=== PATIENT | female | born 1990 | race Caucasian/White ===

== ENCOUNTER 2018-04-13 01:20 | Inpatient (IN) | payer OTHER ==
[2018-04-13] MEDS: ELECTROLYTE-148 SOLN 1,000 ML IV SCH ×2 (01:30→06:30)
[2018-04-13] MEDS ORDERED: TUBERCULIN PPD 5 TU/0.1ML SYRINGE (IN PATIENT USE ONLY) ID ONE (02:30)
[2018-04-13 02:49] LABS: BASO % 0.3 % (0-2.0); EOS % 0.8 % (0-4.5); HEMATOCRIT 36.9 % (32.4-45.2); HEMOGLOBIN 12.8 GM/dL (10.7-15.3); LYMPH % 32.3 % (8-40); MCH 30.5 pg (25.7-33.7); MCHC 34.8 g/dl (32.0-36.0); MEAN CELL VOLUME 87.8 fl (80-96); MEAN PLT VOLUME 8.4 fl (7.5-11.1); MONO % 5.3 % (3.8-10.2); NEUT % 61.3 % (42.8-82.8); PLATELET COUNT 218 K/MM3 (134-434); RDW 13.5 % (11.6-15.6); WHITE BLOOD COUNT 8.7 K/mm3 (4.0-10.0)
[2018-04-13 03:02] LABS: INR 0.97 (0.83-1.09); PROTHROMBIN TIME (PATIENT) 11.4 SEC (9.7-13.0)
[2018-04-13 03:05] LABS: ACTIVATED PTT 28.4 SECONDS (25.2-36.5)
[2018-04-13 03:13] LABS: ANION GAP 10 MMOL/L (8-16); BLOOD UREA NITROGEN 12 mg/dL (7-18); CALCIUM 8.5 mg/dL (8.5-10.1); CHLORIDE 106 mmol/L (98-107); CO2 22 mmol/L (21-32); CREATININE 0.6 mg/dL (0.55-1.3); GLUCOSE,RANDOM 85 mg/dL (74-106); POTASSIUM 3.6 mmol/L (3.5-5.1); SODIUM 138 mmol/L (136-145)
[2018-04-13 03:17] VITALS: BMI 39.6
[2018-04-13] MEDS ORDERED: BUTORPHANOL TARTRATE 1 MG/ML VIAL IVPB ONE (05:44)
[2018-04-13] MEDS ORDERED: PROMETHAZINE HCL 25 MG/1 ML VIAL IVPUSH ONE (05:44)
--- NOTE | 2018-04-13 05:55 | HP ---
Past Medical History - Admission Chief Complaint: Contractions since yesterday History of Present Illness: 28 y/o with SIUP at 40.1 weeks, c/o contractions since 04/11 that strengthened over 04/12. no LOF/VB. +FM. complicated only by unstable lie, baby currently VTX. History Source: Patient, Medical Record Limitations to Obtaining History: No Limitations - Past Medical History Cardiovascular: No: HTN Pulmonary: No: Asthma Gastrointestinal: No: Inflamatory Bowel Disease Hepatobiliary: No: Hepatitis B, Hepatitis C ...: 5 ...Para: 3 ...Term: 3 ...: 0 ...Spon : 1 ...Induced : 0 ...Multiple Gestation: 0 ...LMP: 07/06/17 ... Weeks Gestation by Dates: 40.1 ...EDC by Dates: 04/12/18 ...EDC by Sono: 04/12/18 Infectious Disease: No: AIDS, HIV, MRSA Psych: No: Anxiety, Bipolar, Depression - Past Surgical History Past Surgical History: Yes: None Hx Myomectomy: No Hx Transabdominal Cerclage: No - Smoking History Smoking history: Never smoked Have you smoked in the past 12 months: No - Alcohol/Substance Use Hx Alcohol Use: No - Social History ADL: Independent History of Recent Travel: No Home Medications - Allergies Allergies/Adverse Reactions: Allergies Allergy/AdvReac Type Severity Reaction Status Date / Time No Known Allergies Allergy Verified 04/13/18 01:58 - Home Medications Home Medications: Ambulatory Orders Vitamins (Sjr) - 1 tab PO DAILY 04/13/18 Review of Systems - Review of Systems Constitutional: reports: No Symptoms Eyes: reports: No Symptoms HENT: reports: No Symptoms Neck: reports: No Symptoms Cardiovascular: reports: No Symptoms Respiratory: reports: No Symptoms Gastrointestinal: reports: Abdominal Pain (contractions) Genitourinary: reports: No Symptoms Breasts: reports: No Symptoms Reported Musculoskeletal: reports: No Symptoms Integumentary: reports: No Symptoms Neurological: reports: No Symptoms Endocrine: reports: No Symptoms Hematology/Lymphatic: reports: No Symptoms Psychiatric: reports: No Symptoms Physical Exam - Maternity Vital Signs: Vital Signs Temperature 98.6 F 04/13/18 04:00 Pulse Rate 74 04/13/18 05:00 Respiratory Rate 20 04/13/18 05:00 Blood Pressure 122/72 04/13/18 05:00 O2 Sat by Pulse Oximetry (%) Constitutional: Yes: Well Nourished, Calm, Mild Distress (with contractions) Eyes: Yes: Conjunctiva Clear, EOM Intact HENT: Yes: Atraumatic, Normocephalic Neck: Yes: Trachea Midline Cardiovascular: Yes: Regular Rate and Rhythm Lungs: Clear to auscultation - Abdominal Exam/OB Fundal Height: 40 Number of Fetuses: Single Presentation: Vertex Contractions: Yes Regularity: Regular Intensity: Mod/Strong Heart Rate (range): 140 Category: I Accelerations: Uniform Decelerations: None - Vaginal Exam/OB Dilatation (cm): 7 Effacement (%): 90 Amniotic Membrane Status: Intact Presentation: Vertex/Position Station: -1 - Physical Exam Psychiatric: Yes: Alert, Oriented - Labs Lab Results: CBC, BMP 04/13/18 02:25 04/13/18 02:25 Hemorrhage Risk Assessment - Risk Factors Medium Risk Factors: Yes: None High Risk Factors: Yes: None Risk Score: 1 Risk Level: Medium Risk Problem List - Problems (1) Active labor at term Code(s): [id number] - Assessment/Plan 28 y/o with SIUP at 40.2 weeks admitted in labor FHTS cat 1 to get epidural then AROM and possibly pitocin GBS negative anticipate
[2018-04-13] MEDS ORDERED: FENTANYL/BUPIVACAINE/NS/PF - PCEA - 50 ML DISP.SYRIN EP ONE (06:02)
[2018-04-13] MEDS ORDERED: BUPIVACAINE HCL/PF 0.25% (2.5MG/ML) 10 ML VIAL ONE (06:11)
[2018-04-13] MEDS ORDERED: NALOXONE HCL 0.4 MG/ML VIAL IVPUSH PRN (06:29)
[2018-04-13] MEDS ORDERED: FENTANYL/BUPIVACAINE/NS/PF - PCEA - 50 ML DISP.SYRIN EP SCH (06:30)
--- NOTE | 2018-04-13 06:48 | PN ---
Ante-Partal Exam - Subjective Subjective: Pt comfortable s/p epidural. Vital Signs: Vital Signs Temperature 98.6 F 04/13/18 04:00 Pulse Rate 74 04/13/18 05:00 Respiratory Rate 20 04/13/18 05:00 Blood Pressure 122/72 04/13/18 05:00 O2 Sat by Pulse Oximetry (%) Bleeding: No Headache: No Visual changes: No Right upper quadrant pain: No Pain (scale 1-10): 0 - Contractions Contractions: Yes Regularity: Regular Intensity: Mod/Strong - Exam during Labor Heart Rate: 145 Variability: Moderate Category: I Monitor Decelerations: None Exam: Vaginal Dilatation (cm): 8 Effacement (%): 90 Amniotic Membrane Status: Ruptured (AROM for clear fluid) Amniotic Fluid: Clear Presentation: Vertex Station: -1 - Assessment/Plan Assessment/Plan: 28 y/o with SIUP at 40.1 weeks, labor s/p epidural/AROM GBS negative continue expectant management anticipate
[2018-04-13] MEDS ORDERED: LIDOCAINE HCL 1% PRESERVATIVE FREE - 30ML VIAL ONE (07:39)
[2018-04-13] MEDS ORDERED: OXYTOCIN 20 UNITS in 0.9% NS 20 UNIT/1,000 ML INFUS.BAG IV ONE ×2 (07:39→08:10)
--- NOTE | 2018-04-13 08:04 | PN ---
Ante-Partal Exam - Subjective Vital Signs: Vital Signs Temperature 98.6 F 04/13/18 04:00 Pulse Rate 90 04/13/18 07:40 Respiratory Rate 20 04/13/18 07:40 Blood Pressure 123/74 04/13/18 07:40 O2 Sat by Pulse Oximetry (%) 100 04/13/18 07:40
[2018-04-13] MEDS ORDERED: METHYLERGONOVINE MALEATE 0.2 MG/1 ML AMP IM PRN (08:05)
[2018-04-13] MEDS ORDERED: BENZOCAINE 28 GM HEMORRHOIDAL OINTMENT TP PRN (08:05)
[2018-04-13] MEDS ORDERED: BENZOCAINE 20% 57 GM BOTTLE TP PRN (08:05)
[2018-04-13] MEDS ORDERED: BISACODYL 10 MG SUPP.RECT RC PRN (08:05)
[2018-04-13] MEDS ORDERED: WITCH HAZEL 50% (TUCKS) 40 PAD/JAR PAD TP PRN (08:05)
--- NOTE | 2018-04-13 08:05 | PN ---
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
[2018-04-13] MEDS ORDERED: OXYTOCIN 20 UNITS in 0.9% NS 20 UNIT/1,000 ML INFUS.BAG IV SCH (08:15)
[2018-04-13] MEDS: PRENATAL VITAMINS W/ FOLIC ACID TABLET (FP) PO SCH (10:00)
[2018-04-13] MEDS: FERROUS SO4 325 MG TABLET (FP) PO SCH ×2 (12:00→17:44)
[2018-04-13] MEDS: ACETAMINOPHEN 325 MG TABLET (FP) PO PRN (20:04)
[2018-04-13] MEDS: IBUPROFEN 600 MG TABLET (FP) PO PRN (20:05)
[2018-04-14 08:02] LABS: BASO % 0.3 % (0-2.0); EOS % 1.8 % (0-4.5); HEMATOCRIT 36.5 % (32.4-45.2); HEMOGLOBIN 12.3 GM/dL (10.7-15.3); LYMPH % 33.9 % (8-40); MCH 29.8 pg (25.7-33.7); MCHC 33.6 g/dl (32.0-36.0); MEAN CELL VOLUME 88.7 fl (80-96); MEAN PLT VOLUME 8.1 fl (7.5-11.1); MONO % 4.5 % (3.8-10.2); NEUT % 59.5 % (42.8-82.8); PLATELET COUNT 196 K/MM3 (134-434); RBC 4.12 M/mm3 (3.60-5.2); RDW 14.3 % (11.6-15.6)
[2018-04-14] MEDS: PRENATAL VITAMINS W/ FOLIC ACID TABLET (FP) PO SCH (09:01)
[2018-04-14] MEDS: FERROUS SO4 325 MG TABLET (FP) PO SCH ×3 (09:01→17:21)
[2018-04-14] MEDS: IBUPROFEN 600 MG TABLET (FP) PO PRN (09:05)
[2018-04-14] MEDS: ACETAMINOPHEN 325 MG TABLET (FP) PO PRN (09:06)
[2018-04-14] MEDS ORDERED: DIPHTH,PERTUSS(ACELL),TET 0.5 ML DISP.SYRIN IM ONE (10:00)
--- NOTE | 2018-04-14 11:09 | PN ---
Post Progress Note - Subjective Subjective: Pt seen/evaluated. Doing well. No complaints. Tolerating diet, ambulating, voiding, passing flatus. Type of Delivery: Vital Signs: Vital Signs Temperature 98 F 04/14/18 07:40 Pulse Rate 76 04/14/18 07:40 Respiratory Rate 20 04/14/18 07:40 Blood Pressure 111/76 04/14/18 07:40 O2 Sat by Pulse Oximetry (%) 100 04/13/18 07:55 Breast Exam: Yes: Soft Uterus: Yes: Fundus Firm Abdomen/GI: Yes: Abdomen soft, Tolerating PO Lochia: Yes: Rubra Lochia, amount: Small Extremities: Yes: Calves non-tender, Edema (trace b/l le edema) Perineum: Yes: Intact Activity: Ambulating - Labs Labs: CBC WBC 10.0 K/mm3 (4.0-10.0) 04/14/18 07:00 RBC 4.12 M/mm3 (3.60-5.2) 04/14/18 07:00 Hgb 12.3 GM/dL (10.7-15.3) 04/14/18 07:00 Hct 36.5 % (32.4-45.2) 04/14/18 07:00 MCV 88.7 fl (80-96) 04/14/18 07:00 MCH 29.8 pg (25.7-33.7) 04/14/18 07:00 MCHC 33.6 g/dl (32.0-36.0) 04/14/18 07:00 RDW 14.3 % (11.6-15.6) 04/14/18 07:00 Plt Count 196 K/MM3 (134-434) 04/14/18 07:00 MPV 8.1 fl (7.5-11.1) 04/14/18 07:00 Absolute Neuts (auto) 5.9 K/mm3 (1.5-8.0) 04/14/18 07:00 Neutrophils % 59.5 % (42.8-82.8) 04/14/18 07:00 Lymphocytes % 33.9 % (8-40) 04/14/18 07:00 Monocytes % 4.5 % (3.8-10.2) 04/14/18 07:00 Eosinophils % 1.8 % (0-4.5) D 04/14/18 07:00 Basophils % 0.3 % (0-2.0) 04/14/18 07:00 Nucleated RBC % 0 % (0-0) 04/14/18 07:00 Problem List - Problems (1) Active labor at term Code(s): SXA6461 - Assessment/Plan PPD#1 s/p normal reguar diet ambulation PO pain meds routine care
[2018-04-14] MEDS ORDERED: SENNOSIDES/DOCUSATE COMBO (SENNA PLUS) TABLET (UD) PO PRN (22:00)
--- NOTE | 2018-04-15 06:38 | DS ---
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 SHe had an uncomplicated post recovery and was discharged home on post day 2. Condition: Good - Instructions Diet, Activity, Other Instructions: Physical activity Resume your normal everyday activity as tolerated no heavy lifting or exercise until seen by your surgeon. You may walk unlimited amounts and climb stairs. You may resume driving the car when you feel safe and comfortable behind the wheel. No sexual activity as instructed. You may shower daily, no soaking in tubs/baths/pools until cleared by your doctor. . Diet There are no dietary restrictions. Eat healthy, high-fiber foods. Drink 6 to 8 glasses of liquid each day. This will assist in keeping your bowels regular. Pain management You may take Tylenol or or Ibuprofen (for example, Motrin, Advil etc.) as needed for pain. If anything stronger is sent to your pharmacy please take only for severe pain as directed. Call MD for any of the following: Severe pain not relieved by medication Fever of 101 or higher Excessive bleeding or drainage on dressing Inability to urinate Disposition: HOME - Home Medications Comprehensive Discharge Medication List: Ambulatory Orders Vitamins (Sjr) - 1 tab PO DAILY 04/13/18
[2018-04-15 08:23] VITALS: BP 117/76; PULSE 70; TEMP 98.4
[2018-04-15] MEDS: PRENATAL VITAMINS W/ FOLIC ACID TABLET (FP) PO SCH (09:21)
[2018-04-15] MEDS: FERROUS SO4 325 MG TABLET (FP) PO SCH ×2 (09:21→12:00)
== END 2018-04-15 13:20 | disposition home or self-care (01) | DRG 560 ==
LOC: JDEL 01:20 → JLDR 02:00 → J3W 09:30
PROVIDERS: ADMIT Obstetrics & Gynecology; ATTEND Obstetrics & Gynecology
PROC: 10E0XZZ Delivery of Products of Conception, External Approach (ICD-10-PCS; principal; 2018-04-13)
DX: O32.0XX0 Maternal care for unstable lie, not applicable or unspecified (principal); O48.0 Post-term pregnancy; Z3A.40 40 weeks gestation of pregnancy; Z37.0 Single live birth
CPT/HCPCS: 36415; 59409; 80048; 85025; 85610; 85730; 86593; 86850; 86900; 86901; 87389; 90715

== ENCOUNTER 2018-06-08 16:42 | Emergency (ER) | payer OTHER ==
[2018-06-08 16:56] VITALS: BP 112/67; PULSE 72; TEMP 97.8; BMI 39.2
--- NOTE | 2018-06-08 17:17 | PDOC ---
History of Present Illness - General Chief Complaint: Foreign Body (FB) Stated Complaint: URINARY COMPL/IUD Time Seen by Provider: 06/08/18 17:17 History Source: Patient - History of Present Illness Initial Comments: 06/08/18 18:25 28 year old female c/o left pelvic pain x 3 day worse with urinating. patient [facility] denies vaginal discharge, NVD, fever/ chills. Past History - Past Medical History Allergies/Adverse Reactions: Allergies Allergy/AdvReac Type Severity Reaction Status Date / Time No Known Allergies Allergy Verified 04/13/18 01:58 Home Medications: Ambulatory Orders Vitamins (Sjr) - 1 tab PO DAILY 04/13/18 Ibuprofen [Motrin -] 600 mg PO QID #28 tablet 04/15/18 Asthma: No Cancer: No Cardiac Disorders: No COPD: No Diabetes: No HTN: No Seizures: No Thyroid Disease: No - Immunization History Immunization Up to Date: No - Suicide/Smoking/Psychosocial Hx Smoking History: Never smoked Have you smoked in the past 12 months: No Information on smoking cessation initiated: No Hx Alcohol Use: No Drug/Substance Use Hx: No Substance Use Type: None Hx Substance Use Treatment: No Review of Systems - Review of Systems Able to Perform ROS?: Yes Is the patient limited Maltese proficient: No Constitutional: No: Symptoms Reported, See HPI, Chills, Diaphoresis, Fever, Loss of Appetite, Malaise, Night Sweats, Weakness, Weight Stable, Unintentional Wgt. Loss, Unexplained wgt Loss, Other ABD/GI: Yes: Other (pelvic pain) : Yes: Dysuria *Physical Exam - Vital Signs Last Vital Signs Temp Pulse Resp BP Pulse Ox 97.8 F 72 18 112/67 100 06/08/18 16:52 06/08/18 16:52 06/08/18 16:52 06/08/18 16:52 06/08/18 16:52 - Physical Exam General Appearance: Yes: Appropriately Dressed Female Pelvic Exam: positive: normal external exam, other (IUD string in vaginal vault) Musculoskeletal: positive: Normal Inspection Extremity: positive: Normal Capillary Refill, Normal Inspection, Normal Range of Motion Integumentary: positive: Normal Color, Dry, Warm Neurologic: positive: Fully Oriented, Alert Medical Decision Making - Medical Decision Making 06/08/18 19:[address] marlow recommends CT labs. patient transferred to Main ED> signed out to Terry MORFIN/ Rowan RN *DC/Admit/Observation/Transfer Diagnosis at time of Disposition: Malpositioned IUD Qualifiers: Encounter type: initial encounter Qualified Code(s): T83.32XA - Displacement of intrauterine contraceptive device, initial encounter - Discharge Dispostion Condition at time of disposition: Stable - Referrals - Patient Instructions - Post Discharge Activity
[2018-06-08 18:44] LABS: EPI CELLS 0.7 /HPF (0-5/HPF); PH,URINE 7.5 (5.0-8.0); URINE APPEARANCE CLEAR; URINE BACTERIA 40.5 /hpf (NEGATIVE); URINE BILIRUBIN NEGATIVE (NEGATIVE); URINE CASTS 0 /lpf (0-8); URINE COLOR YELLOW; URINE GLUCOSE (UA) NEGATIVE (NEGATIVE); URINE KETONE NEGATIVE (NEGATIVE); URINE LEUK ESTERASE TRACE (NEGATIVE); URINE NITRITE NEGATIVE (NEGATIVE); URINE PROTEIN NEGATIVE (NEGATIVE); URINE RBC 1 /hpf (0-4); URINE UROBILINOGEN 0.2 mg/dL (0.2-1.0); URINE WBC 1 /hpf (0-5)
--- NOTE | 2018-06-08 19:41 | PDOC ---
*Physical Exam - Vital Signs Last Vital Signs Temp Pulse Resp BP Pulse Ox 97.8 F 72 18 112/67 100 06/08/18 16:52 06/08/18 16:52 06/08/18 16:52 06/08/18 16:52 06/08/18 16:52 - Physical Exam General Appearance: Yes: Appropriately Dressed. No: Apparent Distress Gastrointestinal/Abdominal: positive: Normal Bowel Sounds, Soft. negative: Tender Integumentary: positive: Normal Color, Dry, Warm Neurologic: positive: Alert, Normal Response ED Treatment Course - LABORATORY CBC & Chemistry Diagram: 06/08/18 20:10 06/08/18 19:03 - ADDITIONAL ORDERS Additional order review: Laboratory Results 06/08/18 06/08/18 17:46 17:46 Urine Color Yellow Urine Appearance Clear Urine pH 7.5 Ur Specific [place] 1.011 Urine Protein Negative Urine Glucose (UA) Negative Urine Ketones Negative Urine Blood Negative Urine Nitrite Negative Urine Bilirubin Negative Urine Urobilinogen 0.2 Ur Leukocyte Esterase Trace Urine WBC (Auto) 1 Urine RBC (Auto) 1 Urine Casts (Auto) 0 U Epithel Cells (Auto) 0.7 Urine Bacteria (Auto) 40.5 Urine HCG, Qual Negative Progress Note - Progress Note Progress Note: Received signout from nurse practitioner Andrew. Briefly this is a 28-year-old woman with left-sided pelvic pain was noted to have optimization of her IUD on ultrasound. Dr. Sacnhez has been contacted who recommends laboratory testing and CAT scan to evaluate position of IUD. Dr. Sanchez is to be contacted at the testing is been completed for disposition. Medical Decision Making - Medical Decision Making 06/08/18 23:03 CT scan is read by Dr. Medina: An extrauterine position of the IUD is interposed between the uterus and urinary bladder in the left paramedian position. Trace amount of free fluid is seen within the cul-de-sac. Dr. Perry's been contacted and is aware of CT findings. Patient placed in MEDICAL DIR room for evaluation by gynecology. 06/08/18 23:[address] 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 Dr. Jalloh states the patient can be admitted for pain management if she chooses or follow-up with Dr. Jalloh first thing in the morning for removal of IUD. It was explained to the patient that surgical removal is an option and has potential to be sent back to the hospital for admission for surgical removal of the IUD. Patient understands and is in agreement with the current plan. Narcotic pain relief was offered to the patient who states she could use Tylenol and does not need anything stronger. 06/10/18 20:13 *DC/Admit/Observation/Transfer Diagnosis at time of Disposition: Malpositioned IUD Qualifiers: Encounter type: initial encounter Qualified Code(s): T83.32XA - Displacement of intrauterine contraceptive device, initial encounter - Discharge Dispostion Disposition: HOME Condition at time of disposition: Stable Decision to Admit order: No - Referrals Referrals: Linda Martin MD [Primary Care Provider] - Cyndee Jalloh DO [Staff Physician] - - Patient Instructions Additional Instructions: Go to Dr. Minaya's office first thing in the morning. The office opens at 9 AM. Return to emergency department sooner if you experience severe pain, fevers or for any other concerns. Thank you very much for choosing us to provide your emergent health care needs. - Post Discharge Activity
[2018-06-08 20:43] LABS: BASO % 0.6 % (0-2.0); EOS % 2.1 % (0-4.5); HEMATOCRIT 37.2 % (32.4-45.2); HEMOGLOBIN 12.6 GM/dL (10.7-15.3); LYMPH % 35.7 % (8-40); MCH 29.7 pg (25.7-33.7); MCHC 33.8 g/dl (32.0-36.0); MEAN CELL VOLUME 87.8 fl (80-96); MONO % 4.9 % (3.8-10.2); NEUT % 56.7 % (42.8-82.8); PLATELET COUNT 319 K/MM3 (134-434); RBC 4.23 M/mm3 (3.60-5.2); RDW 14.5 % (11.6-15.6); WHITE BLOOD COUNT 8.8 K/mm3 (4.0-10.0)
[2018-06-08 21:26] LABS: CREATININE 0.6 mg/dL (0.55-1.3)
[2018-06-08 21:27] LABS: ALBUMIN 3.8 g/dl (3.4-5.0); CO2 28 mmol/L (21-32)
[2018-06-08 21:30] LABS: ALK PHOS 198 U/L (45-117); ANION GAP 5 MMOL/L (8-16); BILIRUBIN,TOTAL 0.4 mg/dL (0.2-1); BLOOD UREA NITROGEN 16 mg/dL (7-18); CALCIUM 9.4 mg/dL (8.5-10.1); CHLORIDE 105 mmol/L (98-107); GLUCOSE,RANDOM 84 mg/dL (74-106); POTASSIUM 5.2 mmol/L (3.5-5.1); SGOT/AST 46 U/L (15-37); SGPT/ALT 42 U/L (13-61); SODIUM 138 mmol/L (136-145)
[2018-06-09 00:19] LABS: INR 0.98 (0.83-1.09); PROTHROMBIN TIME (PATIENT) 11.6 SEC (9.7-13.0)
== END 2018-06-08 23:44 | disposition home or self-care (01) ==
LOC: JERFT 16:42 → JER 16:42
DX: T83.32XA Displacement of intrauterine contraceptive device, initial encounter (principal)
CPT/HCPCS: 36415; 74177-TC; 76830-TC; 80053; 81003; 84703; 85025; 85610; 86850; 86900; 86901; 87086; 99281-25

== ENCOUNTER 2018-06-09 11:01 | Day surgery (SDC) | payer OTHER ==
[2018-06-09 11:09] VITALS: BMI 39.2
--- NOTE | 2018-06-09 11:57 | PDOC ---
Documentation entered by Delores Antoine SCRIBE, acting as scribe for Meli Batres MD. Meli Batres MD: This documentation has been prepared by the Arash muniz Amanda, SCRIBE, under my direction and personally reviewed by me in its entirety. I confirm that the documentation accurately reflects all work, treatment, procedures, and medical decision making performed by me. History of Present Illness - General Chief Complaint: Pain Stated Complaint: SENT BY PCP Time Seen by Provider: 06/09/18 11:25 History Source: Patient Exam Limitations: No Limitations - History of Present Illness Initial Comments: 06/09/18 11:39 The patient is a 28 yo F with no significant past medical history, , who presents to the ED from the office of Dr. Jalloh for removal of her IUD. The patient was told her IUD shifted and upon attempt to remove the IUD in the office, Dr. Jalloh encountered resistance and the patient reported pain. Dr. Jalloh would like the patient to have the IUD removed in the O.R. The patient denies any complaints at this time, denies fevers, chills, cp, sob, abd pain, weakness/numbness Past History - Past Medical History Allergies/Adverse Reactions: Allergies Allergy/AdvReac Type Severity Reaction Status Date / Time No Known Allergies Allergy Verified 06/09/18 11:07 Home Medications: Ambulatory Orders Oxycodone HCl/Acetaminophen [Percocet 5-325 mg Tablet] 1 - 2 tab PO Q4H PRN #20 tablet MDD 6 06/09/18 Amox-Tr/K Cl [Augmentin - 500Mg Tablet] 1 tab PO BID #10 tab 06/10/18 Asthma: No Cancer: No Cardiac Disorders: No COPD: No Diabetes: No HTN: No Seizures: No Thyroid Disease: No - Immunization History Immunization Up to Date: No - Suicide/Smoking/Psychosocial Hx Smoking History: Never smoked Have you smoked in the past 12 months: No Hx Alcohol Use: No Drug/Substance Use Hx: No Substance Use Type: None Hx Substance Use Treatment: No Review of Systems - Review of Systems Comments:: 06/09/18 11:51 GENERAL/CONSTITUTIONAL: No fever or chills. No weakness. HEAD, EYES, EARS, NOSE AND THROAT: No change in vision. No ear pain or discharge. No sore throat. GASTROINTESTINAL: No nausea, vomiting, diarrhea or constipation. GENITOURINARY: No dysuria, frequency, or change in urination. CARDIOVASCULAR: No chest pain or shortness of breath. RESPIRATORY: No cough, wheezing, or hemoptysis. MUSCULOSKELETAL: No joint or muscle swelling or pain. No neck or back pain. SKIN: No rash NEUROLOGIC: No headache, vertigo, loss of consciousness, or change in strength/ sensation. ENDOCRINE: No increased thirst. No abnormal weight change. HEMATOLOGIC/LYMPHATIC: No anemia, easy bleeding, or history of blood clots. ALLERGIC/IMMUNOLOGIC: No hives or skin allergy. *Physical Exam - Vital Signs Last Vital Signs Temp Pulse Resp BP Pulse Ox 98.7 F 86 17 117/78 99 06/09/18 11:07 06/09/18 11:07 06/09/18 11:07 06/09/18 11:07 06/09/18 11:07 - Physical Exam Comments: 06/09/18 11:52 GENERAL: Awake, alert, and fully oriented, in no acute distress EYES: PERRLA, EOMI, sclera anicteric, conjunctiva clear ENT: Oropharynx clear without exudates. Moist mucosa NECK: Normal ROM, supple, no lymphadenopathy, JVD, or masses LUNGS: Breath sounds equal, clear to auscultation bilaterally. No wheezes, and no crackles HEART: Regular rate and rhythm, normal S1 and S2, no murmurs, rubs or gallops ABDOMEN: Soft, nontender, normoactive bowel sounds. No guarding, no rebound. No masses CUSTOM BOOKBINDER: deferred EXTREMITIES: Normal range of motion, no edema. No cords, erythema, or tenderness NEUROLOGICAL: Normal speech, cranial nerves intact, equals strength and sensation b/l SKIN: Warm, Dry, normal turgor, no rashes or lesions noted. ED Treatment Course - LABORATORY CBC & Chemistry Diagram: 06/10/18 07:00 06/10/18 07:00 Medical Decision Making - Medical Decision Making 06/09/18 11:52 28yo pt sent for admission to [facility] per Dr. Jalloh for IUD removal. Pt diagnosed with extrauterine position of IUD btwn bladder and uterus. Per Dr. Jalloh,. removal attempted as strings visible, however due to significant pain, pt to be admitted to [facility] for OR removal. Labs from last night including cbc, type and screen, urine reviewed. Pt admitted to Dr. Jalloh for further mgmt. *DC/Admit/Observation/Transfer Diagnosis at time of Disposition: Displacement of intrauterine contraceptive device - Discharge Dispostion Condition at time of disposition: Good Decision to Admit order Date/Time: Decision to Admit Order Category Date Time Status Decision to Admit to Hospital Routine Admission 06/09/18 11:33 Active - Prescriptions - Referrals - Patient Instructions - Post Discharge Activity - Attestations Physician Attestion: 06/10/18 16:49 I, Dr. Meli Batres MD, attest that this document has been prepared under my direction and personally reviewed by me in its entirety. I further attest, that it accurately reflects all work, treatment, procedures and medical decision -making performed by me.
--- NOTE | 2018-06-09 12:36 | HP ---
Admitting History and Physical - Admission Chief Complaint: 28 y/o female [facility] presented to the ED last night with abdominal pain. Upon CT and ultrasound examination it appears the IUD is extrauterine/in the cavity. However, the IUD strings were still noted in the cervix. The patient was stable , discharged home for attempt to remove IUD in office which failed due to resistance and pain. Plan was then made to remove IUD in the OR. Pt aware. History Source: Patient, Medical Record Limitations to Obtaining History: No Limitations - Past Medical History Cardiovascular: No: AFIB, HTN Pulmonary: No: Asthma, Cancer Gastrointestinal: No: GERD Renal/: No: UTI Reproductive: No: Endometriosis, Polycystic Ovary Syndrome Heme/Onc: No: Anemia Infectious Disease: No: HIV, MRSA, STD's Psych: No: Bipolar, Depression - Past Surgical History Past Surgical History: Yes: None - Smoking History Smoking history: Never smoked Have you smoked in the past 12 months: No - Alcohol/Substance Use Hx Alcohol Use: No - Social History ADL: Independent History of Recent Travel: No Home Medications - Allergies Allergies/Adverse Reactions: Allergies Allergy/AdvReac Type Severity Reaction Status Date / Time No Known Allergies Allergy Verified 06/09/18 11:07 - Home Medications Home Medications: Ambulatory Orders NK [No Known Home Medication] 06/08/18 Review of Systems - Review of Systems Constitutional: reports: No Symptoms Eyes: reports: No Symptoms HENT: reports: No Symptoms Neck: reports: No Symptoms Cardiovascular: reports: No Symptoms Respiratory: reports: No Symptoms Gastrointestinal: reports: Abdominal Pain Genitourinary: reports: No Symptoms Breasts: reports: No Symptoms Reported Musculoskeletal: reports: No Symptoms Integumentary: reports: No Symptoms Neurological: reports: No Symptoms Endocrine: reports: No Symptoms Hematology/Lymphatic: reports: No Symptoms Psychiatric: reports: No Symptoms Physical Examination Vital Signs: Vital Signs Temperature 98.7 F 06/09/18 11:07 Pulse Rate 86 06/09/18 11:07 Respiratory Rate 17 06/09/18 11:07 Blood Pressure 117/78 06/09/18 11:07 O2 Sat by Pulse Oximetry (%) 99 06/09/18 11:07 Constitutional: Yes: Well Nourished, No Distress, Calm Eyes: Yes: Conjunctiva Clear, EOM Intact HENT: Yes: Atraumatic, Normocephalic Neck: Yes: Trachea Midline Cardiovascular: Yes: Regular Rate and Rhythm Respiratory: Yes: Regular Gastrointestinal: Yes: Normal Bowel Sounds, Soft Problem List - Problems (1) Displacement of intrauterine contraceptive device Code(s): T83.32XA - DISPLACEMENT OF INTRAUTERINE CONTRACEPTIVE DEVICE, INIT Assessment/Plan Discussed plan with patient plan for laparoscopic removal of IUD and possible hysteroscopy, possible laparotomy pt aware of plan OR aware, will add on today NPO preop labs drawn last night
[2018-06-09] MEDS ORDERED: IBUPROFEN 800 MG/8 ML IJ IVPB PRN ×2 (13:44→16:03)
[2018-06-09] MEDS ORDERED: LACTATED RINGERS SOLUTION 1,000 ML IV SCH (13:45)
--- NOTE | 2018-06-09 13:47 | PN ---
Progress Note (short form) - Note Progress Note: DIscussed with patient the plan of care. Plan for laparoscopy, removal of IUD, possible hysteroscopy, possible laparotomy if needed , pt aware of possible injury to bowel/bladder due to perforation of IUD and possible need for exploratory laparotomy. Informed consent signed with patient Discussed case with general surgery staff who is in house in case we need assistance. Problem List - Problems (1) Displacement of intrauterine contraceptive device Code(s): T83.32XA - DISPLACEMENT OF INTRAUTERINE CONTRACEPTIVE DEVICE, INIT
[2018-06-09] MEDS ORDERED: CEFAZOLIN 2 GM/D5W 2 GM/50 ML ML IVPB ONE (14:00)
[2018-06-09] MEDS ORDERED: ceFAZolin 2 GRAM PREMIX BAG IVPB ONE (14:00)
[2018-06-09] MEDS ORDERED: PROPOFOL 20 ML ONE ×2 (14:04→14:30)
[2018-06-09] MEDS ORDERED: fentaNYL CITRATE 250 MCG/5 ML VIAL ONE (14:04)
[2018-06-09] MEDS ORDERED: MIDAZOLAM HCL 2 MG/2 ML SINGLE DOSE VIAL ONE (14:04)
[2018-06-09] MEDS ORDERED: ceFAZolin SODIUM 1 GM VIAL IVPB ONE (14:33)
[2018-06-09] MEDS ORDERED: KETOROLAC TROMETHAMINE 30 MG/1 ML VIAL ONE (14:41)
[2018-06-09] MEDS ORDERED: DEXAMETHASONE SOD PHOSPHATE 4 MG/1 ML VIAL ONE (14:41)
[2018-06-09] MEDS ORDERED: ceFAZolin SODIUM 1 GM VIAL ONE (14:41)
[2018-06-09] MEDS ORDERED: NEOSTIGMINE METHYLSULFATE 0.5 MG/ML - 10 ML MDV ONE (15:35)
[2018-06-09] MEDS ORDERED: GLYCOPYRROLATE 0.2 MG/1 ML VIAL ONE (15:41)
[2018-06-09] MEDS ORDERED: BISACODYL 5 MG TABLET.DR (FP) PO PRN (16:03)
[2018-06-09] MEDS ORDERED: SIMETHICONE 80 MG TAB.CHEW (FP) PO PRN (16:03)
[2018-06-09] MEDS ORDERED: oxyCODONE HCL 5 MG TABLET PO PRN ×4 (16:03→16:09)
[2018-06-09] MEDS ORDERED: DOCUSATE SODIUM 100 MG CAPSULE (FP) PO PRN (16:03)
[2018-06-09] MEDS ORDERED: ACETAMINOPHEN 325 MG TABLET (FP) PO PRN (16:03)
[2018-06-09] MEDS ORDERED: ONDANSETRON 4 MG/2 ML VIAL IVPUSH PRN ×2 (16:03→16:09)
[2018-06-09] MEDS ORDERED: PROMETHAZINE HCL 25 MG/1 ML VIAL IVPUSH PRN (16:09)
--- NOTE | 2018-06-09 16:21 | OP ---
Operative Note - Note: Operative Date: 06/09/18 Pre-Operative Diagnosis: Malpositioned intrauterine device-extrauterine Operation: diagnostic laparoscopy with removal of malpositioned intrauterine device-extrauterine Post-Operative Diagnosis: Same as Pre-op Surgeon: Cyndee Jalloh Material Inspector: Swapna Oliveira Anesthesiologist/PIPEMAN: Adiel Kearns Anesthesia: General Specimens Removed: Intrauterine device Estimated Blood Loss (mls): 20 Drains, Volume Out (mls): 600 (urine plata) Fluid Volume Replaced (mls): 1,000 Operative Report Dictated: Yes
--- NOTE | 2018-06-09 16:22 | SURG ---
Surgery Optics Engineer Note Optics Engineer: Swapna Oliveira PA-C Date of Service: 06/09/18 Diagnosis: malpositioned intrauterine device-extrauterine Procedure: diagnostic laparoscopy with removal of malpositioned intrauterine device- extrauterine I was present for the entirety of the operative procedure. For further detail, please refer to operative report. Visit type - Case Type Case Type: ED Admission - Emergency Emergency Visit: Yes Care time: The patient presented to the Emergency Department on the above date and was hospitalized for further evaluation of their emergent condition. - New patient This patient is new to me today: Yes Date on this admission: 06/09/18
[2018-06-09] MEDS: CEFAZOLIN 1 GM/D5W 1 GM/50 ML BAG IVPB SCH (22:05)
[2018-06-10] MEDS: CEFAZOLIN 1 GM/D5W 1 GM/50 ML BAG IVPB SCH (06:15)
--- NOTE | 2018-06-10 06:54 | PN ---
Progress Note, Physician History of Present Illness: Pt s/p laparoscopy and IUD removal/GABRIEL for intrateritoneal IUD and adhesions noted to uterus. Pt feeling well, mild pain. Good urine output overnight. No n/v. no CP/SOB. - Current Medication List Current Medications: Active Medications Acetaminophen (Tylenol -) 650 mg PO Q4H PRN PRN Reason: FEVER Bisacodyl (Dulcolax -) 10 mg PO DAILY PRN PRN Reason: CONSTIPATION Docusate Sodium (Colace -) 100 mg PO Q8H PRN PRN Reason: CONSTIPATION Lactated Ringer's (Lactated Ringers Solution) 1,000 mls @ 125 mls/hr IV ASDIR VINEET Last Admin: 06/09/18 17:40 Dose: 0 mls Cefazolin Sodium (Ancef 1 Gm Premixed Ivpb -) 1 gm in 50 mls @ 100 mls/hr IVPB Q8H VINEET Stop: 06/10/18 06:59 Last Admin: 06/10/18 06:15 Dose: 100 mls/hr Ibuprofen (Caldolor Injection -) 800 mg IVPB Q8H PRN PRN Reason: PAIN LEVEL 1-3 Ondansetron HCl (Zofran Injection) 4 mg IVPUSH Q4H PRN PRN Reason: NAUSEA AND/OR VOMITING Stop: 06/10/18 09:00 Oxycodone HCl (Roxicodone -) 10 mg PO Q4H PRN PRN Reason: PAIN LEVEL 7-10 Last Admin: 06/09/18 21:59 Dose: 10 mg Oxycodone HCl (Roxicodone -) 5 mg PO Q4H PRN PRN Reason: PAIN LEVEL 4-6 Simethicone (Mylicon -) 80 mg PO Q4H PRN PRN Reason: GAS Last Admin: 06/09/18 21:59 Dose: 80 mg - Objective Vital Signs: Vital Signs Temperature 98.0 F 06/10/18 06:00 Pulse Rate 72 06/10/18 06:00 Respiratory Rate 20 06/10/18 06:00 Blood Pressure 90/66 06/10/18 06:00 O2 Sat by Pulse Oximetry (%) 95 06/09/18 20:41 Constitutional: Yes: Well Nourished, No Distress, Calm HENT: Yes: Atraumatic, Normocephalic, Tonsillar Exudate Cardiovascular: Yes: Regular Rate and Rhythm Respiratory: Yes: Regular Gastrointestinal: Yes: Normal Bowel Sounds, Soft, Other (incisions c/d/i, slightly tender around incisions) Genitourinary: Yes: Vaginal Bleeding (spotting) Wound/Incision: Yes: Clean/Dry, Well Approximated Neurological: Yes: Alert, Oriented Psychiatric: Yes: Alert, Oriented Problem List - Problems (1) Displacement of intrauterine contraceptive device Code(s): T83.32XA - DISPLACEMENT OF INTRAUTERINE CONTRACEPTIVE DEVICE, INIT (2) S/P laparoscopy Code(s): Z98.890 - OTHER SPECIFIED POSTPROCEDURAL STATES Assessment/Plan regular diet await a.m. labs ok to d/c home if able to void and tolerate diet
--- NOTE | 2018-06-10 07:04 | OP ---
DATE OF OPERATION: 06/09/2018 PREOPERATIVE DIAGNOSIS: Intraperitoneal intrauterine device. POSTOPERATIVE DIAGNOSIS: Intraperitoneal intrauterine device with adhesions of the bowel to the left fallopian tube and posterior uterus. SURGEON: Cyndee Jalloh DO PRICING ACTUARY: WADE Valentino ANESTHESIA: General by Adiel Kearns MD PROCEDURE: Diagnostic laparoscopy, removal of malpositioned intrauterine device , and lysis of adhesions. FINDINGS: Included Paragard copper IUD adhered to the fundus of the uterus as well as fallopian tube and rectal adhesions to the same site on the posterior fundal uterus. Normal urinary bladder. Sponge and instrument count correct. DISPOSITION: Stable to PACU. BRIEF HISTORY AND PROCEDURE: The patient is a 28-year-old female who had been seen in the emergency department with complaints of lower abdominal pain. Had evidence of having an intrauterine device placed at an outside institution approximately 10 days prior. Upon imaging, was noted to have an IUD that appeared to be in the intraperitoneal cavity. After examination of the patient in the office on the following days, the patient was counseled on her options and elected and agreed to undergo a laparoscopic removal of IUD. The patient was then booked for surgery on that date. Consents for the procedure were signed. DESCRIPTION OF PROCEDURE: She was then taken back to the operating room, given general anesthesia, placed in the dorsal lithotomy position. Ricci catheter was placed under sterile conditions. A time-out was performed. A 5-mm skin incision was created in the umbilicus, and a Veress needle was placed intra-abdominally. The abdomen was insufflated with CO2 gas. A 5-mm trocar was placed in this incision. The camera was inserted intra-abdominally. After confirmation of intra- abdominal placement, two bilateral 5-mm lower quadrant ports were placed under direct visualization. After inspection of the pelvis, it appeared that the left fallopian tube and rectum were adhered to the posterior wall of the uterus. At this point , only the IUD strings were appreciated, which appeared to be protruding through the uterine fundus. After dissection of the left fallopian tube and bowel bluntly away from the posterior uterine wall using laparoscopic peanut, the copper IUD was noted to be attached to the fundus of the uterus and that the fallopian tube and bowel had attached itself to that site as well. After blunt dissection, the IUD was able to be freed from its attachments to the uterus, fallopian tube and rectum and was removed under direct visualization through right lower quadrant port along with the IUD strings. Inspection of the fundus of the uterus revealed no active bleeding from the uterine perforation site. Left fallopian tube appear to be intact without any evidence of bleeding. In the area of dissection a small amount of inflammatory tissue was noted where the rectum was attached to the uterus, it was hemostatic, and no evidence of bowel injury was appreciated. General Surgery was asked to come in to visualize the portion of the rectum and they agreed that the rectum appeared to be intact and no further action was needed. At this point, the abdomen was desufflated. All trocars were removed from the abdomen. The skin was reapproximated using 4-0 Biosyn and skin glue. The Ricci catheter was removed. The patient tolerated the procedure well. Recovered in stable condition in PACU after the procedure. CYNDEE JALLOH DO /[id number] MTDD
[2018-06-10 07:56] LABS: HEMATOCRIT 38.9 % (32.4-45.2); HEMOGLOBIN 12.7 GM/dL (10.7-15.3); MCH 28.8 pg (25.7-33.7); MCHC 32.7 g/dl (32.0-36.0); MEAN CELL VOLUME 88.1 fl (80-96); MEAN PLT VOLUME 6.9 fl (7.5-11.1); PLATELET COUNT 360 K/MM3 (134-434); RBC 4.41 M/mm3 (3.60-5.2); RDW 14.2 % (11.6-15.6); WHITE BLOOD COUNT 11.3 K/mm3 (4.0-10.0)
[2018-06-10 07:59] VITALS: BP 125/71; PULSE 85; TEMP 98.5
[2018-06-10 08:06] LABS: ANION GAP 8 MMOL/L (8-16); BLOOD UREA NITROGEN 12 mg/dL (7-18); CHLORIDE 107 mmol/L (98-107); CO2 26 mmol/L (21-32); CREATININE 0.6 mg/dL (0.55-1.3); GLUCOSE,RANDOM 109 mg/dL (74-106); POTASSIUM 4.3 mmol/L (3.5-5.1); SODIUM 140 mmol/L (136-145)
[2018-06-10] MEDS ORDERED: ENOXAPARIN NA (PORCINE) 40 MG/0.4 ML DISP.SYRIN SQ SCH (10:00)
--- NOTE | 2018-06-13 09:01 | PATH ---
Surgical Pathology Report Patient Name: GILBERTO MOYA Med. Rec. #: [id number] /Age/Gender: 1990 (Age: 28) / F Account: [id number] Location: AMBULATORY SURG Taken: 06/09/2018 Received: 06/12/2018 Reported: 06/13/2018 Physicians: Cyndee Jalloh M.D. 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 Electronically Signed Karlo Braxton M.D. Gross Description Received fresh labeled "removed IUD," is a 3.5 cm in length T-shaped device, consistent with an IUD. No soft tissue is present. No sections are submitted, gross only. /06/12/2018 [facility]/06/12/2018
== END 2018-06-10 10:20 | disposition home or self-care (01) ==
LOC: JER 11:01 → JASUSAT 16:03 → J3W 18:06 → JASUSAT 06-10 10:20
PROVIDERS: ATTEND Physician Assistant
PROC: 0WPG4YZ Removal of Other Device from Peritoneal Cavity, Percutaneous Endoscopic Approach (ICD-10-PCS; principal; 2018-06-09 12:30)
PROC: 0DNW4ZZ Release Peritoneum, Percutaneous Endoscopic Approach (ICD-10-PCS; 2018-06-09 12:30)
DX: T83.32XA Displacement of intrauterine contraceptive device, initial encounter (principal); N73.6 Female pelvic peritoneal adhesions (postinfective)
CPT/HCPCS: 36415; 80048; 85027; 88300-TC; 94760; 99282-25

== ENCOUNTER 2019-04-26 11:55 | Emergency (ER) | payer OTHER ==
[2019-04-26 12:20] VITALS: TEMP 97.9; BMI 39.6
[2019-04-26 13:06] LABS: BASO % 0.2 % (0-2.0); EOS % 1.4 % (0-4.5); HEMATOCRIT 37.1 % (32.4-45.2); HEMOGLOBIN 12.1 GM/dL (10.7-15.3); LYMPH % 30.2 % (8-40); MCH 28.6 pg (25.7-33.7); MCHC 32.7 g/dl (32.0-36.0); MEAN CELL VOLUME 87.5 fl (80-96); MEAN PLT VOLUME 7.4 fl (7.5-11.1); MONO % 5.8 % (3.8-10.2); NEUT % 62.4 % (42.8-82.8); PLATELET COUNT 305 K/MM3 (134-434); RBC 4.24 M/mm3 (3.60-5.2); RDW 14.1 % (11.6-15.6); WHITE BLOOD COUNT 9.9 K/mm3 (4.0-10.0)
[2019-04-26 13:18] LABS: INR 1.05 (0.83-1.09); PROTHROMBIN TIME (PATIENT) 12.4 SEC (9.7-13.0)
[2019-04-26 13:20] LABS: ACTIVATED PTT 37.6 SECONDS (25.2-36.5)
--- NOTE | 2019-04-26 13:40 | PDOC ---
History of Present Illness - General History Source: Patient Exam Limitations: No Limitations - History of Present Illness Initial Comments: 04/26/19 13:36 29-year-old female G4, P4 history of uterine perforation due to IUD misplacement May 2018 presents complaining of acute pain to left lower pelvic area shooting down to left knee 2 days ago which has been intermittent since. Had IUD placed November 2018, describes pain similar to the pain she experienced in May 2018. Denies fever, chills, vaginal bleeding, vaginal discharge, pain during sexual intercourse, urinary complaints, rectal pain, vomiting, diarrhea, chest pain, shortness of breath or any other complaint. Patient took a home test 2 days ago which she reports as negative. LMP March 31, 2019. ROS: GENERAL/CONSTITUTIONAL: No fever, chills, weakness, dizziness HEAD, EYES, EARS, NOSE AND THROAT: No changes in vision, No ear pain or discharge, No sore throat CARDIOVASCULAR: No chest pain RESPIRATORY: No shortness of breath or cough GASTROINTESTINAL: Left-sided pelvic pain, denies nausea, vomiting, diarrhea or constipation GENITOURINARY: No dysuria, denies vaginal bleeding or discharge MUSCULOSKELETAL: No neck or back pain SKIN: No rash NEUROLOGIC: No headache, vertigo, loss of consciousness, or loss of sensation PE: GENERAL: well-appearing, NAD HEAD: NCAT EYES: Pupils equal, round and reactive to light, sclera anicteric, conjunctiva clear ENT: pharynx: no erythema, no exudate, uvula midline NECK: supple CHEST: nontender RESP: clear, no w/r/r CARDIO: rrr, no m/g/r ABD: +BS, soft, left lower quadrant tenderness to palpation, no rebound, no guarding : Closed os, no CMT tenderness to palpation, felt IUD string, no blood in the vault, left adnexal tenderness to palpation, no masses palpated BACK: no midline spinal ttp, no CVAT EXTREMITIES: Normal range of motion, no edema NEUROLOGICAL: Normal speech, normal gait SKIN: Warm, Dry Is this a multiple visit Asthma Patient?: No <Niharika Hogan - Last Filed: 04/26/19 15:54> <Víctor Palmer - Last Filed: 04/26/19 16:43> - General Chief Complaint: Pain, Acute Stated Complaint: SHARP ABD PAIN Time Seen by Provider: 04/26/19 12:25 Past History - Past Medical History Asthma: No Cancer: No Cardiac Disorders: No COPD: No Diabetes: No HTN: No Seizures: No Thyroid Disease: No - Immunization History Immunization Up to Date: No - Psycho Social/Smoking Cessation Hx Smoking History: Current every day smoker Have you smoked in the past 12 months: No Information on smoking cessation initiated: No Hx Alcohol Use: No Drug/Substance Use Hx: Yes ([facility]) Substance Use Type: None Hx Substance Use Treatment: No <Niharika Hogan - Last Filed: 04/26/19 15:54> <Víctor Palmer - Last Filed: 04/26/19 16:43> - Past Medical History Allergies/Adverse Reactions: Allergies Allergy/AdvReac Type Severity Reaction Status Date / Time No Known Allergies Allergy Verified 04/26/19 12:16 Home Medications: Ambulatory Orders Oxycodone HCl/Acetaminophen [Percocet 5-325 mg Tablet] 1 - 2 tab PO Q4H PRN #20 tablet MDD 6 06/09/18 Amox-Tr/K Cl [Augmentin - 500Mg Tablet] 1 tab PO BID #10 tab 06/10/18 *Physical Exam - Vital Signs Last Vital Signs Temp Pulse Resp BP Pulse Ox 97.9 F 70 18 140/57 L 100 04/26/19 12:16 04/26/19 12:16 04/26/19 12:16 04/26/19 12:16 04/26/19 12:16 <Niharika Hogan - Last Filed: 04/26/19 15:54> - Vital Signs Last Vital Signs Temp Pulse Resp BP Pulse Ox 97.9 F 70 18 140/57 L 100 04/26/19 12:16 04/26/19 12:16 04/26/19 12:16 04/26/19 12:16 04/26/19 12:16 <Víctor Palmer - Last Filed: 04/26/19 16:43> ED Treatment Course - LABORATORY CBC & Chemistry Diagram: 04/26/19 12:45 04/26/19 12:45 - ADDITIONAL ORDERS Additional order review: Laboratory Results 04/26/19 12:45 PT with INR 12.40 INR 1.05 PTT (Actin FS) 37.6 H 04/26/19 12:45 RBC 4.24 MCV 87.5 MCHC 32.7 RDW 14.1 MPV 7.4 L Neutrophils % 62.4 Lymphocytes % 30.2 Monocytes % 5.8 Eosinophils % 1.4 Basophils % 0.2 - RADIOLOGY Radiology Studies Ordered: Category Date Time Status TRANSVAGINAL ULTRASOUND US [US] Stat Ultrasound 04/26/19 12:40 Ordered <Niharika Hogan - Last Filed: 04/26/19 15:54> - LABORATORY CBC & Chemistry Diagram: 04/26/19 12:45 04/26/19 12:45 - ADDITIONAL ORDERS Additional order review: Laboratory Results 04/26/19 04/26/19 04/26/19 13:35 12:45 12:45 PT with INR INR PTT (Actin FS) Sodium 140 Potassium 3.7 Chloride 106 Carbon Dioxide 28 Anion Gap 6 L BUN 11.1 Creatinine 0.7 Est GFR (CKD-EPI)AfAm 134.75 Est GFR (CKD-EPI)NonAf 116.26 Random Glucose 83 Calcium 9.1 Total Bilirubin 0.3 AST 23 ALT 35 Alkaline Phosphatase 161 H Total Protein 7.3 Albumin 3.6 Urine Color Yellow Urine Appearance Cloudy Urine pH 6.5 Ur Specific [place] 1.014 Urine Protein Negative Urine Glucose (UA) Negative Urine Ketones Negative Urine Blood Negative Urine Nitrite Negative Urine Bilirubin Negative Urine Urobilinogen 0.2 Ur Leukocyte Esterase 1+ H Urine HCG, Qual Negative Blood Type O POSITIVE Antibody Screen Negative 04/26/19 12:45 PT with INR 12.40 INR 1.05 PTT (Actin FS) 37.6 H Sodium Potassium Chloride Carbon Dioxide Anion Gap BUN Creatinine Est GFR (CKD-EPI)AfAm Est GFR (CKD-EPI)NonAf Random Glucose Calcium Total Bilirubin AST ALT Alkaline Phosphatase Total Protein Albumin Urine Color Urine Appearance Urine pH Ur Specific [place] Urine Protein Urine Glucose (UA) Urine Ketones Urine Blood Urine Nitrite Urine Bilirubin Urine Urobilinogen Ur Leukocyte Esterase Urine HCG, Qual Blood Type Antibody Screen 04/26/19 12:45 RBC 4.24 MCV 87.5 MCHC 32.7 RDW 14.1 MPV 7.4 L Neutrophils % 62.4 Lymphocytes % 30.2 Monocytes % 5.8 Eosinophils % 1.4 Basophils % 0.2 <Víctor Palmer - Last Filed: 04/26/19 16:43> Medical Decision Making - Medical Decision Making 04/26/19 15:49 29-year-old female G4, P4 history of uterine perforation due to IUD misplacement May 2018 presents complaining of acute pain to left lower pelvic area shooti ng down to left knee 2 days ago which has been intermittent since. Had IUD placed November 2018, describes pain similar to the pain she experienced in May 2018. Denies fever, chills, vaginal bleeding, vaginal discharge, pain during sexual intercourse, urinary complaints, rectal pain, vomiting, diarrhea, chest pain, shortness of breath or any other complaint. Patient took a home test 2 days ago which she reports as negative. LMP March 31, 2019. 04/26/19 15:54 Urine negative evus: IUD within uterine cavity, small right ovarian cyst Discussed these results with patient Benign abdominal exam Reviewed labs and urine results with patient No pain while in the ED Well-appearing We will discharge with PMD and GI follow-up next week Patient understands strict return precautions <Niharika Hogan - Last Filed: 04/26/19 15:54> - Medical Decision Making 04/26/19 16:43 I reviewed the case of the mid-level practitioner and was available for consultation while in the emergency department <Víctor Palmer - Last Filed: 04/26/19 16:43> Discharge - Discharge Information Problems reviewed: Yes - Admission No <Niharika Hogan - Last Filed: 04/26/19 15:54> <Víctor Palmer - Last Filed: 04/26/19 16:43> - Discharge Information Clinical Impression/Diagnosis: Pelvic pain Condition: Stable Disposition: HOME - Follow up/Referral Referrals: Linda Martin MD [Primary Care Provider] - Neris Eisenberg MD [Staff Physician] - - Patient Discharge Instructions - Post Discharge Activity
[2019-04-26 13:41] LABS: ALBUMIN 3.6 g/dl (3.4-5.0); BILIRUBIN,TOTAL 0.3 mg/dL (0.2-1); BLOOD UREA NITROGEN 11.1 mg/dL (7-18); CALCIUM 9.1 mg/dL (8.5-10.1); CREATININE 0.7 mg/dL (0.55-1.3); POTASSIUM 3.7 mmol/L (3.5-5.1); TOT PROT 7.3 g/dl (6.4-8.2)
[2019-04-26 14:20] LABS: PH,URINE 6.5 (5.0-8.0); URINE APPEARANCE CLOUDY; URINE BILIRUBIN NEGATIVE (NEGATIVE); URINE COLOR YELLOW; URINE GLUCOSE (UA) NEGATIVE (NEGATIVE); URINE KETONE NEGATIVE (NEGATIVE); URINE LEUK ESTERASE 1+ (NEGATIVE); URINE NITRITE NEGATIVE (NEGATIVE); URINE PROTEIN NEGATIVE (NEGATIVE); URINE UROBILINOGEN 0.2 mg/dL (0.2-1.0)
[2019-04-26 14:33] LABS: HCG,QUALITATIVE URINE NEGATIVE
[2019-04-26 18:54] VITALS: BP 140/72; PULSE 68
== END 2019-04-26 16:00 | disposition home or self-care (01) ==
LOC: JER 11:55
DX: R10.2 Pelvic and perineal pain (principal); N83.201 Unspecified ovarian cyst, right side; Z97.5 Presence of (intrauterine) contraceptive device
CPT/HCPCS: 36415; 76830-TC; 80053; 81003; 84703; 85025; 85610; 85730; 86850; 86900; 86901; 99284-25